=== PATIENT | male | born 1960 ===

== ENCOUNTER 2020-09-06 06:37 | Day surgery (SDC) | payer OTHER ==
[~2020-09-06] VITALS: Ht 182.9 cm; Wt 102.1 kg
[~2020-09-06 06:37] MED LIST: MULTI VIT PO; STOOL SOFTENER100 M1 PO
[2020-09-06 09:29] VITALS: BP 136/79
== END 2020-09-06 09:02 | DRG 379 ==
LOC: ENDO 06:37
PROVIDERS: ATTEND Surgery
PROC: 0DJD8ZZ Inspection of Lower Intestinal Tract, Via Natural or Artificial Opening Endoscopic (ICD-10-PCS; principal; 2020-09-06)
DX: K92.1 Melena (principal); K59.00 Constipation, unspecified; Z86.010 Personal history of colon polyps; Z20.822 Contact with and (suspected) exposure to COVID-19